=== PATIENT | male | born 1940 | race Caucasian/White ===

== ENCOUNTER 2020-10-11 13:50 | Emergency (ER) | payer OTHER ==
[~2020-10-11] VITALS: Ht 177.8 cm; Wt 90.7 kg
[~2020-10-11 13:50] MED LIST: ARICEPT10 MG; ASA81 MG; ATACAND HCT 31 UDTA1; ATACAND32 MG; CEFDINIR300 MG PO; COSOPT PF EYE1 EACH; DETROL2 MG; FISH OIL 500 M1 EAC2; INTESTINEX680 M1 PO; LIPITOR20 MG; LUMIGAN2.5 M1; NIFE60TA3; TRAVATAN Z5 ML; TRAZODONE HCL50 MG; ZIOPTAN 0.00151 EACH; [UNRECOGNIZED DRUG - OTHER]; [UNRECOGNIZED DRUG - OTHER]
== END 2020-10-11 17:05 | disposition home or self-care (01) ==
LOC: ER 13:50
DX: S00.03XA Contusion of scalp, initial encounter (principal); G30.8 Other Alzheimer's disease; W01.198A Fall on same level from slipping, tripping and stumbling with subsequent striking against other object, initial encounter; Y93.89 Activity, other specified; Y92.018 Other place in single-family (private) house as the place of occurrence of the external cause; Y99.8 Other external cause status

== ENCOUNTER 2021-04-06 11:43 | Emergency (ER) | payer OTHER ==
[~2021-04-06] VITALS: Ht 175.3 cm; Wt 90.7 kg
[2021-04-06] MEDS ORDERED: MEMANTINE HCL10 MG PO (12:05)
[2021-04-06] MEDS ORDERED: ATORVASTATIN CA20 MG PO (12:05)
[2021-04-06] MEDS ORDERED: TRAZODONE HCL100 MG PO (12:05)
== END 2021-04-06 15:30 | disposition home or self-care (01) ==
LOC: ER 11:43
DX: N39.0 Urinary tract infection, site not specified (principal)

== ENCOUNTER 2021-05-10 14:57 | Emergency (ER) | payer OTHER ==
[~2021-05-10] VITALS: Ht 177.8 cm; Wt 90.7 kg
[~2021-05-10 14:57] MED LIST changes: +ATORVASTATIN CA20 MG PO; +MEMANTINE HCL10 MG PO; +TRAZODONE HCL100 MG PO
== END 2021-05-10 22:23 | disposition home or self-care (01) ==
LOC: ER 14:57
DX: M79.662 Pain in left lower leg (principal); M79.661 Pain in right lower leg; M25.552 Pain in left hip; M25.562 Pain in left knee; M25.561 Pain in right knee; G30.8 Other Alzheimer's disease; F02.80 Dementia in other diseases classified elsewhere, unspecified severity, without behavioral disturbance, psychotic disturbance, mood disturbance, and anxiety; Z74.01 Bed confinement status

== ENCOUNTER 2021-05-16 10:38 | Emergency (ER) | payer OTHER ==
[~2021-05-16] VITALS: Ht 175.3 cm; Wt 84.4 kg
== END 2021-05-16 22:11 | disposition home or self-care (01) ==
LOC: ER 10:38
DX: L89.151 Pressure ulcer of sacral region, stage 1 (principal); L89.891 Pressure ulcer of other site, stage 1; G30.8 Other Alzheimer's disease; F02.80 Dementia in other diseases classified elsewhere, unspecified severity, without behavioral disturbance, psychotic disturbance, mood disturbance, and anxiety